=== PATIENT | male | born 1980 | race Caucasian/White ===

== ENCOUNTER 2020-08-25 10:43 | Emergency (ER) | payer BC ==
[~2020-08-25] VITALS: Ht 177.8 cm; Wt 80.3 kg
[2020-08-25 11:20] LABS: BASOPHILS % (AUTO) 0.3 % (0.0-2.0); HEMATOCRIT 38 % (39-51); HEMOGLOBIN 13.1 g/dL (13.5-17.5); LYMPHOCYTES # (AUTO) 0.6 K/uL (0.8-4.8); LYMPHOCYTES % (AUTO) 12.5 % (20.0-44.0); MEAN CORPUSCULAR HGB CONC 34 g/dl (31.0-36.0); MEAN CORPUSCULAR VOLUME 89 fL (80-96); MONOCYTES # (AUTO) 0.3 K/uL (0.1-1.30); MONOCYTES % (AUTO) 6.3 % (2.0-12.0); NEUTROPHILS # (AUTO) 4.2 K/uL (1.8-8.9); NEUTROPHILS % (AUTO) 80.9 % (43.0-81.0); PLATELET COUNT (AUTO) 99 K/uL (150-450); RED BLOOD CELL COUNT(AUTO) 4.29 MIL/uL (4.5-6.0); WHITE BLOOD COUNT (AUTO) 5.2 K/uL (4.3-11.0)
[2020-08-25] MEDS: IV NS 0.9% 1,000 ML IV ONE (11:20)
[2020-08-25] MEDS ORDERED: PRED20TA PO (11:38)
[2020-08-25] MEDS ORDERED: ALBU18HF2 INH (11:38)
[2020-08-25 11:41] LABS: ALANINE AMINOTRANSFERASE 34 U/L (12-78); ALBUMIN 2.9 g/dL (3.4-5.0); ALKALINE PHOSPHATASE 31 U/L (46-116); ASPARTATE AMINOTRANSFERASE 32 U/L (15-37); BILIRUBIN,TOTAL 0.3 mg/dL (0.2-1.0); CALCIUM, SERUM 8.1 mg/dL (8.5-10.1); CARBON DIOXIDE 25 mmol/L (21-32); CHLORIDE 100 mmol/L (98-107); CREATININE 1.3 mg/dL (0.6-1.3); GLUCOSE 173 mg/dL (74-106); POTASSIUM 3.2 mmol/L (3.5-5.1); SODIUM SERUM 136 mmol/L (136-145); TOTAL PROTEIN, SERUM 6.5 g/dL (6.4-8.2); UREA NITROGEN, BLOOD 13 mg/dL (7-18)
--- NOTE | 2020-08-25 11:42 | NUR ---
BIBS FROM HOEM TO ER BED 6. AAOX4. NOT IN RESP DISTRESS BREATHING EVEN, UNLABORED BUT SATTING AT 93% ON RA. AMBULATORY. CAME IN FOR SOB AND FEVER X 10 DAYS. PT WAS NOTED HAVING 02 SAT OF 93% ON RA. PLCED ON O2 VIA NC. PT REPORTS THAT HE IS COVID POSITIVE X 3 DAYS AGO. MD WAS AT THE BEDSIDE. ORDERS RECEIVED, NOTED AND CARRIED OUT.
[2020-08-25 11:53] LABS: D-DIMER 0.26 mg/L(FEU (0.17-0.50)
[2020-08-25 12:39] LABS: CREATINE KINASE, TOTAL 282 U/L (39-308); FERRITIN 2302 ng/mL (8-388)
[2020-08-25 12:43] LABS: C-REACTIVE PROTEIN 6.3 mg/dL (0.0-0.9)
[2020-08-25 13:02] VITALS: BP 118/66
[2020-08-25] MEDS ORDERED: LORA-259 PO (13:08)
--- NOTE | 2020-08-25 13:12 | NUR ---
Patient discharged to home in stable condition. Written and verbal after care instructions given. Patient verbalizes understanding of instruction.IV removed. Catheter intact and site benign. Pressure and 4x4 applied to site. No bleeding noted. Pt ambulatory with a steady gait
--- NOTE | 2020-08-25 13:13 | NUR ---
PT IS CLEARED AND MARKED FOR DISCHARGE. PT RATING EXAMINER WILL BE COMING IN 45 MIN. SINCE PT IS COVID POSITIVE HE IS OK TO WAIT IN THE ROOM UNTIL RIDE ARRIVES.
--- NOTE | 2020-08-25 15:02 | NUR ---
PT PICKED UP BY THE
== END 2020-08-25 15:02 | disposition home or self-care (01) ==
LOC: ER 10:48
DX: U07.1 COVID-19 (principal); Z79.899 Other long term (current) drug therapy
CPT/HCPCS: 36415; 71045; 80053; 82550; 82728; 83615; 83880; 84145; 84484; 85007; 85025; 85378; 85730; 86140; 93005; 96360; 99285; J7030